=== PATIENT | female | born 1985 | race Caucasian/White ===

== ENCOUNTER 2021-12-29 06:37 | Inpatient (IN) | payer OTHER ==
[2021-12-29] MEDS ORDERED: HYDROcodone/Acetaminophen 5/325 mg Tablet PO PRN ×4 (07:51→19:15)
[2021-12-29] MEDS ORDERED: Preparation H Ointment 28 GM TUBE PR PRN (07:51)
[2021-12-29] MEDS ORDERED: Acetaminophen 500 MG TAB PO PRN (07:51)
[2021-12-29] MEDS ORDERED: hydrALAZINE 20 MG/ML VIAL SLOW IVP PRN ×3 (07:51→19:15)
[2021-12-29] MEDS ORDERED: Promethazine HCl 25 MG/ML VIAL IM PRN (07:51)
[2021-12-29] MEDS ORDERED: Ondansetron PF 4 MG/2 ML Vial IVP PRN ×3 (07:51→19:15)
[2021-12-29] MEDS ORDERED: Bisacodyl 10 MG SUPP PR PRN ×2 (07:51→19:15)
[2021-12-29] MEDS ORDERED: Butorphanol Tartrate 1 MG/ML VIAL SLOW IVP PRN (07:51)
[2021-12-29] MEDS ORDERED: Lanolin Ointment 7 GM TUBE TOP PRN (07:51)
[2021-12-29] MEDS ORDERED: Milk Of Magnesia 30 ML UDCUP PO PRN ×2 (07:51→19:15)
[2021-12-29 07:59] VITALS: BMI 28.3
[2021-12-29] MEDS ORDERED: Ferrous Sulfate 325 MG TAB PO SCH ×2 (08:00→19:45)
[2021-12-29] MEDS ORDERED: Lactated Ringer's 1,000 ML IV SCH (08:00)
[2021-12-29 08:30] LABS: Hemoglobin 13.2 g/dL (12.0-15.5); Mean Corpuscular HGB CONC 33.8 g/dL (32.0-36.0); Mean Corpuscular Hemoglobin 30.8 pg (27.0-33.0); Mean Corpuscular Volume 90.9 fl (81.6-98.3); Mean Platelet Volume 12.2 fl (7.4-10.4); Platelet Count 160 10x3/uL (150-450); RBC Distribution Width 15.1 % (11.5-14.5); Red Blood Cell (RBC) Count 4.29 10x6/uL (3.90-5.03); White Blood Cell (WBC) Count 7.8 10x3/uL (3.5-10.5)
[2021-12-29] MEDS ORDERED: Docusate 100 MG CAP PO SCH (09:00)
[2021-12-29 09:32] LABS: Hep B Surf Ag Non-Reactive S/CO (NonReactive); Syphilis Antibody Nonreactive (Nonreactive); Syphilis Antibody Index 0.05 S/CO (<1.00 Non-Reactive)
[2021-12-29 09:33] LABS: HBSAg Index 0.16 S/CO (0-0.99)
[2021-12-29] MEDS: NS w/ Oxytocin 30 units 500 ML IV SCH ×2 (10:34→11:10)
[2021-12-29] MEDS ORDERED: Lidocaine 1% (PF) 30 ML VIAL ONE (10:42)
[2021-12-29] MEDS ORDERED: Butorphanol Tartrate 1 MG/ML VIAL ONE (10:43)
[2021-12-29 12:16] LABS: SARS-CoV-2 NAA Rapid Test Not Detected (NotDetected)
[2021-12-29] MEDS ORDERED: Ibuprofen 800 MG TAB PO SCH (14:00)
[2021-12-29] MEDS ORDERED: Benzocaine-Menthol 82.5 ML CAN TOP PRN (19:15)
[2021-12-29] MEDS ORDERED: NS w/ Oxytocin 30 units 500 ML IV SCH (19:15)
[2021-12-29] MEDS ORDERED: Boostrix 0.5 ML (Tdap) VIAL IM ONE (19:15)
[2021-12-29] MEDS: Ibuprofen 800 MG TAB PO SCH (21:43)
[2021-12-29] MEDS: Docusate 100 MG CAP PO SCH (21:43)
[2021-12-30] MEDS: Ibuprofen 800 MG TAB PO SCH ×3 (06:06→21:52)
[2021-12-30] MEDS ORDERED: Boostrix 0.5 ML (Tdap) VIAL IM ONE (07:51)
[2021-12-30 09:14] LABS: Hemoglobin 9.7 g/dL (12.0-15.5)
[2021-12-30] MEDS: Ferrous Sulfate 325 MG TAB PO SCH ×2 (09:52→17:45)
[2021-12-30] MEDS: Prenatal Vitamin 1 TAB PO SCH (09:52)
[2021-12-30] MEDS: Docusate 100 MG CAP PO SCH ×2 (09:52→21:52)
[2021-12-31] MEDS: Ibuprofen 800 MG TAB PO SCH (05:15)
[2021-12-31 07:48] VITALS: BP 90/54; TEMP 99
[2021-12-31] MEDS: Prenatal Vitamin 1 TAB PO SCH (08:16)
[2021-12-31] MEDS: Ferrous Sulfate 325 MG TAB PO SCH (08:16)
[2021-12-31] MEDS: Docusate 100 MG CAP PO SCH (08:16)
== END 2021-12-31 12:00 | disposition home or self-care (01) | DRG 768 ==
LOC: CSHLD/OP 06:37 → CSHLD 10:58 → CSHPP 15:44
PROVIDERS: ADMIT Obstetrics & Gynecology; ATTEND Obstetrics & Gynecology
PROC: 10E0XZZ Delivery of Products of Conception, External Approach (ICD-10-PCS; principal; 2021-12-29)
PROC: 0DQR0ZZ Repair Anal Sphincter, Open Approach (ICD-10-PCS; 2021-12-29)
DX: O42.02 Full-term premature rupture of membranes, onset of labor within 24 hours of rupture (principal); Z37.0 Single live birth; O70.20 Third degree perineal laceration during delivery, unspecified; Z3A.39 39 weeks gestation of pregnancy; Z20.822 Contact with and (suspected) exposure to COVID-19
CPT/HCPCS: 36415; 85014; 85018; 85027; 86780; 86850; 86900; 86901; 87340; 99285; J0595; J2001; J2590; U0002